=== PATIENT | male | born 1980 | race Hispanic/Latino ===

== ENCOUNTER 2018-01-02 09:56 | Emergency (ER) | payer SELFPAY | END 2018-01-02 10:40 | disposition home or self-care (01) | LOC: ERS 09:56 | DX: M54.5 Low back pain (principal); M54.6 Pain in thoracic spine; F41.9 Anxiety disorder, unspecified; F32.9 Major depressive disorder, single episode, unspecified; F17.210 Nicotine dependence, cigarettes, uncomplicated; W20.8XXA Other cause of strike by thrown, projected or falling object, initial encounter; Z71.6 Tobacco abuse counseling | CPT/HCPCS: 96372; 99406; J2270 ==

== ENCOUNTER 2019-08-29 16:30 | Emergency (ER) | payer SELFPAY ==
[2019-08-29 17:33] LABS: Bilirubin Negative (Negative); Blood, Urine Negative (Negative); Clarity Clear (Clear); Glucose, Urine (Dipstick) 50 mg/dL (Negative); Leukocyte Negative Leu/uL (Negative); Nitrite Negative (Negative); Protein, Urine (Dipstick) 20 mg/dL (Neg-Trace); Urobilinogen Normal mg/dL (Less than 2)
[2019-08-29 17:45] LABS: Amphetamine Not Detected (NotDetected); Barbiturates Screen Not Detected (NotDetected); Benzodiazepine Screen Detected (NotDetected); Cocaine Metabolite Screen Not Detected (NotDetected); Medtox Control Line Valid? VALID (VALID); Medtox Reader # READER 1; Methadone Not Detected (NotDetected); Methamphetamine Not Detected (NotDetected); Opiate Screen Detected (NotDetected); Oxycodone Screen Not Detected (NotDetected); Phencyclidine (PCP) Not Detected (NotDetected); THC/Cannabinoid Screen Detected (NotDetected); Tricyclic Screen Not Detected (NotDetected)
--- NOTE | 2019-09-01 14:08 | EKG ---
Test Reason : Blood Pressure : / mmHG Vent. Rate : 133 BPM Atrial Rate : 133 BPM P-R Int : 120 ms QRS Dur : 076 ms QT Int : 310 ms P-R-T Axes : 047 012 051 degrees QTc Int : 461 ms Sinus tachycardia with Fusion complexes Otherwise normal ECG Confirmed by VICTOR HUGO DORANTES ([id number]), features editor RAMAN WEBB ([id number]) on 09/01/2019 2:07:57 PM Referred By: Confirmed By:VICTOR HUGO DORANTES
== END 2019-08-29 17:10 | disposition home or self-care (01) ==
LOC: ERS 16:30
DX: T40.1X1A Poisoning by heroin, accidental (unintentional), initial encounter (principal)
CPT/HCPCS: 80306; 81003; 93005

== ENCOUNTER 2021-04-20 18:14 | Emergency (ER) | payer SELFPAY ==
[2021-04-20] MEDS ORDERED: Ketorolac Tromethamine 30 MG/ML VIAL ONE (18:33)
[2021-04-20] MEDS ORDERED: Lidocaine 1% PF 5 ML VIAL ONE (20:05)
[2021-04-20] MEDS ORDERED: Cyclobenzaprine 10 MG TAB ONE (20:05)
== END 2021-04-20 20:14 | disposition home or self-care (01) ==
LOC: EEVIPCON 18:14 → ERS 18:14
DX: S01.81XA Laceration without foreign body of other part of head, initial encounter (principal); M54.50 Low back pain, unspecified; F17.210 Nicotine dependence, cigarettes, uncomplicated; W18.2XXA Fall in (into) shower or empty bathtub, initial encounter
CPT/HCPCS: 12011; 70450; 72128; 72131; 96372; J1885

== ENCOUNTER 2023-07-09 01:31 | Observation (INO) | payer SELFPAY ==
[2023-07-09] MEDS ORDERED: Naloxone HCl 2 mg/2 ml Syringe ONE ×4 (02:02→04:43)
[2023-07-09 02:30] LABS: #Monocytes 0.7 thou/uL (0.11-0.59); %Basophils 0.4 % (0.0-1.0); %Eosinophils 0.4 % (0.0-10.0); %Monocytes 10.2 % (0.0-10.0); %Neutrophils 58.9 % (42.0-75.0); Hematocrit 38.6 % (42.0-52.0); Mean Corpuscular HGB CONC 33.7 g/dL (32.0-36.0); Mean Corpuscular Hemoglobin 29.5 pg (27.0-31.0); Mean Corpuscular Volume 87.5 fl (78.0-98.0); Mean Platelet Volume 10.4 fL (7.4-10.4); Platelet Count 264 10x3/uL (130-400); RBC Distribution Width 12.9 % (11.5-14.5); Red Blood Cell (RBC) Count 4.41 mill/uL (4.70-6.10); White Blood Cell (WBC) Count 6.8 10x3/uL (4.8-10.8)
[2023-07-09 02:53] LABS: Acetaminophen Less than 10 mcg/mL (10.0-30.0); Alcohol Less than 10.0 mg/dL (Less than 10); Salicylate Less than 8.0 mg/dL (15.0-30.0)
[2023-07-09 03:08] LABS: ALT (SGPT) 23 U/L (8-55); AST (SGOT) 32 U/L (5-34); Albumin 4.1 g/dL (3.5-5.0); Alkaline Phosphatase 64 U/L (40-110); Anion Gap 18 mmol/L (10-20); BUN (Urea Nitrogen) 15 mg/dL (8.9-20.6); Bilirubin, Total 0.8 mg/dL (0.2-1.2); CK (CPK) 248 U/L (30-200); Calc. Creatinine Clearance 0 mL/min (70-130); Calcium 9.7 mg/dL (7.8-10.44); Carbon Dioxide 25 mmol/L (22-29); Chloride 100 mmol/L (98-107); Estimated GFR 103; Globulin 3.8 g/dL (2.4-3.5); Glucose 89 mg/dL (70-105); Potassium 4.3 mmol/L (3.5-5.1); Protein, Total 7.9 g/dL (6.0-8.3); Sodium 139 mmol/L (136-145)
[2023-07-09 03:09] LABS: Troponin I Less than 0.010 ng/mL (< 0.028)
[2023-07-09] MEDS ORDERED: Naloxone HCl 2 MG, Admixture Fee 1 EACH in Sodium Chloride 0.9% 500 ML IV PRN (05:00)
[2023-07-09 05:23] LABS: Amphetamine Not Detected (NotDetected); Barbiturates Screen Not Detected (NotDetected); Benzodiazepine Screen Not Detected (NotDetected); Cocaine Metabolite Screen Not Detected (NotDetected); Methadone Not Detected (NotDetected); Methamphetamine Detected (NotDetected); Opiate Screen Detected (NotDetected); Oxycodone Screen Not Detected (NotDetected); Phencyclidine (PCP) Not Detected (NotDetected); THC/Cannabinoid Screen Detected (NotDetected); Tricyclic Screen Not Detected (NotDetected)
[2023-07-09 06:44] VITALS: BMI 24.3
[2023-07-09] MEDS ORDERED: Acetaminophen 325 MG TAB PO PRN (08:43)
[2023-07-09] MEDS ORDERED: Enoxaparin 40 MG (0.4 mL) SYRINGE ONE (10:41)
[2023-07-09] MEDS: Enoxaparin 40 MG (0.4 mL) SYRINGE SC SCH (10:44)
[2023-07-09 12:01] VITALS: BP 129/68
[2023-07-09] MEDS: FLU VACC QS2023-24(6MOS UP)/PF 60 MCG/0.5 ML SYRINGE IM ONE (15:51)
[2023-07-09] MEDS ORDERED: traZODone HCl 50 MG TAB PO PRN (21:19)
[2023-07-10 05:25] LABS: #Eosinphils 0.1 thou/uL (0.0-0.7); #Monocytes 0.6 thou/uL (0.11-0.59); #Neutrophils 3.6 thou/uL (1.40-6.50); %Basophils 0.6 % (0.0-1.0); %Eosinophils 1.4 % (0.0-10.0); %Lymphocytes 37.2 % (21.0-51.0); %Monocytes 8.6 % (0.0-10.0); %Neutrophils 52.1 % (42.0-75.0); Hematocrit 40.3 % (42.0-52.0); Hemoglobin 13.4 g/dL (14.0-18.0); Mean Corpuscular HGB CONC 33.3 g/dL (32.0-36.0); Mean Corpuscular Hemoglobin 29.3 pg (27.0-31.0); Mean Corpuscular Volume 88.2 fl (78.0-98.0); Mean Platelet Volume 10.5 fL (7.4-10.4); Platelet Count 255 10x3/uL (130-400); RBC Distribution Width 12.7 % (11.5-14.5); Red Blood Cell (RBC) Count 4.57 mill/uL (4.70-6.10)
[2023-07-10 05:56] LABS: Anion Gap 12 mmol/L (10-20); BUN (Urea Nitrogen) 12 mg/dL (8.9-20.6); Calc. Creatinine Clearance 139 mL/min (70-130); Calcium 9.1 mg/dL (7.8-10.44); Carbon Dioxide 24 mmol/L (22-29); Chloride 102 mmol/L (98-107); Estimated GFR 115; Glucose 85 mg/dL (70-105); Potassium 3.8 mmol/L (3.5-5.1); Sodium 134 mmol/L (136-145)
[2023-07-10 09:07] VITALS: TEMP 97.4
== END 2023-07-10 15:30 | disposition home or self-care (01) ==
LOC: ERS 01:31 → ERHOLD 05:35 → INTOOBSV 05:35 → IMCU/EMU 15:20
PROVIDERS: ADMIT Student in an Organized Health Care Education/Training Program; ATTEND Student in an Organized Health Care Education/Training Program
DX: T40.2X1A Poisoning by other opioids, accidental (unintentional), initial encounter (principal); F32.A Depression, unspecified
CPT/HCPCS: 36415; 80048; 80053; 80306; 80307; 82550; 84484; 85025; 93005; 96365; 96372; 96376; G0378; J1650; J2310; J7030